=== PATIENT | male | born 1985 | race Caucasian/White ===

== ENCOUNTER → 2016-08-15 | Outpatient (CLI) | payer OTHER ==
--- NOTE | 2016-08-15 12:20 | PN ---
DATE OF SERVICE: 08/15/2016 A 31-year-old gentleman who has been followed in the Sleep Center for treatment of obstructive sleep apnea-hypopnea syndrome. Patient continued to use his CPAP equipment in [facility] most of the nights and there is no snoring with the machine. Without machine, he continued to have snoring. Sometimes patient has difficulties to put mask on, probably secondary to pressure. I checked his CPAP unit. Pressure is 9 cm of water. Ramp is only 5 minutes and started from 8.5 cm of water. [place] Sleepiness Scale is 7. MEDICATIONS: Propranolol, Lexapro, sodium bicarb, Trileptal, Zyprexa 81, melatonin, sodium docusate. During physical exam, a 31-year-old gentleman. BP 114/79, HR 63, RR 12. Height 69-1/2. Weight 254.2. BMI 36.9. Temperature 97.6, oxygen saturation at room air 100%. Oropharynx, extremely low position of soft palate. ABDOMEN: Obese. NECK: Supple. No JVD, Thyroid is not palpable. LUNGS: Clear to percussion and to auscultation. Good air exchange. No wheezing or rhonchi. HEART: S1, S2 regular. No murmurs, gallops, or rubs. AUTO CRANE DRIVER: Awake, alert, and oriented x3. Cranial nerves 2 to 7 intact. There is no fasciculation or atrophy noted. No focal deficits observed. IMPRESSION: 1. Obstructive sleep apnea-hypopnea syndrome. Patient benefiting from treatment with CPAP at the pressure of 9 cm of water. 2. Obesity; body mass index 36.9. 3. Autism. 4. Depression. 5. Some history of progressive behavior in the past. 6. Anxiety. PLAN: 1. Continue treatment with CPAP every night for the whole night. 2. I adjusted RAMP to 20 minutes starting from 6 cm of water. I think that will be more comfortable for the patient. 3. A prescription for all necessary CPAP supplies. Thank you very much for allowing me to participate in the management of your patient. Sincerely, Chava Poon MD, PhD, FAASM Diplomat of [place] [employer], Sleep Medicine Board by [place] [employer] [employer] Chemical Worker of [facility] [place]
== END | disposition home or self-care (01) ==
LOC: SLEEP 08:16
PROVIDERS: ATTEND Internal Medicine
DX: G47.33 Obstructive sleep apnea (adult) (pediatric) (principal); E66.9 Obesity, unspecified; F84.0 Autistic disorder; F32.9 Major depressive disorder, single episode, unspecified; F41.9 Anxiety disorder, unspecified; Z68.36 Body mass index [BMI] 36.0-36.9, adult; Z99.89 Dependence on other enabling machines and devices; Z79.899 Other long term (current) drug therapy

== ENCOUNTER → 2017-09-11 | Outpatient (CLI) | payer OTHER ==
--- NOTE | 2017-09-11 11:25 | SFUN ---
SLEEP CENTER FOLLOW UP NOTE DATE OF SERVICE: 09/11/2017 A 32-year-old gentleman who has been followed in the Sleep Center for treatment of obstructive sleep apnea-hypopnea syndrome. Patient is trying to use CPAP equipment every night. Sometimes he is using it not for the whole night. According to family, he does not have any snoring with the machine. I checked his CPAP unit. CPAP pressure is 9 cm of water. REM started from 6 cm of water. Machine does not have information about apnea-hypopnea index. [place] Sleepiness Scale today is 2. MEDICATIONS: Propranolol, Lexapro, Trileptal, Zyprexa, melatonin, sodium docusate, sodium bicarb. PHYSICAL EXAM: Patient in no distress. BP 115/74, HR 59, RR 16, height 5, 8, weight 246 pounds which is 8 pounds less than during previous visit, BMI 37.4, temperature 98.1 oxygen saturation at room air 98%. OROPHARYNX: Extremely low position of soft palate. Neck Supple, no JVD. Thyroid is not palpable. LUNGS Clear to percussion and to auscultation. Good air exchange. No wheezing or rhonchi. HEART S1, S2 regular. No murmurs, gallops, or rubs. ABDOMEN Soft and nontender. Bowel sounds are present. No organomegaly appreciated. EXTREMITIES No clubbing or cyanosis. PATHOLOGY TECHNICIAN Awake, alert, and oriented X3. Cranial nerves 2 to 7 intact. There is no fasciculation or atrophy. noted. No focal deficits observed. IMPRESSION: 1. Obstructive sleep apnea-hypopnea syndrome. Patient benefitting from treatment with CPAP. No snoring with CPAP. 2. Obesity, body mass index in the range of 37. Patient lost 8 pounds since previous visit, which is a good sign. 3. Autism. 4. Depression. 5. Anxiety. 6. History of some aggressive behavior in the past. PLAN: 1. Continue treatment with CPAP every night for the whole night. 2. Continue losing weight. 3. Sleep hygiene with regular time in bed for at least 7-1/2 hours. 4. Patient does not drive the car. 5. Prescription for all necessary CPAP supplies including mask, tube, filters. Thank you very much for allowing me to participate in the management of your patient. Sincerely, Chava Poon MD, PhD, FAASM Diplomat of [place] [employer] [place] [employer] Purchasing Associate of [facility] [place] MMLARISA / YULISSAN: [id number] /
== END | disposition home or self-care (01) ==
LOC: SLEEP 10:05
PROVIDERS: ATTEND Internal Medicine
DX: G47.33 Obstructive sleep apnea (adult) (pediatric) (principal); E66.9 Obesity, unspecified; F84.0 Autistic disorder; F32.9 Major depressive disorder, single episode, unspecified; F41.9 Anxiety disorder, unspecified; Z68.37 Body mass index [BMI] 37.0-37.9, adult; Z79.899 Other long term (current) drug therapy

== ENCOUNTER → 2018-08-27 | Outpatient (CLI) | payer OTHER ==
--- NOTE | 2018-08-27 12:39 | SFUN ---
SLEEP CENTER FOLLOW UP NOTE DATE OF SERVICE: 08/27/2018 A 33-year-old gentleman who has been followed in the Sleep Center for treatment of obstructive sleep apnea-hypopnea syndrome. Patient continued to use his CPAP equipment every night and sleeps well according to medical staff of his medical facility. Recently he received new CPAP unit. I checked CPAP unit. CPAP pressure is 9 cm of water. Patient used at 91 out of 94 nights and 44/94 nights more than 4 hours with average usage 5.7 hours. Leak is 13 L/minute, which is normal range. Apnea- hypopnea index 2.4, which is normal. [place] Sleepiness Scale today is 0. MEDICATIONS: Propranolol, Lexapro, sodium bicarb, Trileptal, Zyprexa, Ativan, melatonin, sodium docusate, amlodipine. PHYSICAL EXAM: Patient in no distress. BP 112/68, HR 60, RR 16, height 5 foot 9 inches, weight 248 pounds. Body mass index 36.6, the weight is 2 pounds more than during the visit in 2018, temperature 97.0, oxygen saturation at room air 99%. OROPHARYNX: Extremely low position of soft palate. Mallampati 4. ABDOMEN: Obese. Neck Supple, no JVD. Thyroid is not palpable. LUNGS Clear to percussion and to auscultation. Good air exchange. No wheezing or rhonchi. HEART S1, S2 regular. No murmurs, gallops, or rubs. EXTREMITIES No clubbing or cyanosis. GUEST SERVICES REPRESENTATIVE Awake, alert, and oriented X3. Cranial nerves 2 to 7 intact. There is no fasciculation or atrophy. noted. No focal deficits observed. IMPRESSION: 1. Obstructive sleep apnea-hypopnea syndrome. Patient benefitting from CPAP therapy. 2. Obesity; body mass index 36.6. 3. Autism. 4. Depression. 5. Anxiety. 6. History of some aggressive behavior on the past. PLAN: 1. Patient will continue to use CPAP equipment every night for the whole night. 2. Continue losing weight. 3. Sleep hygiene with regular time in bed for 7.[address] 5. We will maintain all necessary CPAP prescription for CPAP supplies. Thank you very much for allowing me to participate in the management of your patient. Sincerely, Chava Poon MD, PhD, FAASM Diplomat of [place] [employer] [place] [employer] Knitter Wire Mesh of [facility] [place] MMLARISA / YULISSAN: [id number] / RAJAT
== END ==
LOC: SLEEP 11:13
PROVIDERS: ATTEND Internal Medicine
DX: G47.33 Obstructive sleep apnea (adult) (pediatric) (principal); E66.9 Obesity, unspecified; F84.0 Autistic disorder; F41.8 Other specified anxiety disorders; Z68.36 Body mass index [BMI] 36.0-36.9, adult; Z99.89 Dependence on other enabling machines and devices; Z79.899 Other long term (current) drug therapy

== ENCOUNTER → 2020-09-27 | Outpatient (CLI) | payer OTHER ==
--- NOTE | 2020-09-27 20:25 | SFUN ---
SLEEP CENTER FOLLOW UP NOTE DATE OF SERVICE: 09/27/2020 35-year-old gentleman has been followed in Sleep Center for treatment of obstructive sleep apnea-hypopnea syndrome. During the last visit, I saw the patient more than 2 years ago. Patient continued to use his CPAP equipment every night. He is autistic, did not answer the question of information getting from the personnel of the place where he lives. [place] sleepiness Scale today is 2. I checked his CPAP unit. Pressure of 9 cm of water, usage 28/30 nights, but 6/30 nights for more than 4 hours. Average usage 2.7 hours per night. Leak is high at 36 L/minute. Apnea-hypopnea index increased to 9.6. The patient using [place] Qu[place] large sized fullface mask. MEDICATIONS: Propranolol, Lexapro, Trileptal, Zyprexa, and melatonin. PHYSICAL EXAMINATION: GENERAL: Patient in no distress. VITAL SIGNS: BP 110/75, HR 60, RR 15, height 5 feet 10 inches, weight 265.6. Oxygen saturation on room air 100%. Oropharynx extremely low position of soft palate. Mallampati IV. NECK: Supple, no JVD. Thyroid is not palpable. LUNGS: Clear to percussion and to auscultation. Good air exchange. No wheezing or rhonchi. HEART: S1, S2 regular. No murmurs, gallops, or rubs. ABDOMEN: Obese. Soft and nontender. Bowel sounds are present. No organomegaly appreciated. EXTREMITIES: No clubbing or cyanosis. ADMINISTRATIVE ASSISTANT FRONT DESK: Awake, alert, and oriented X3. Cranial nerves 2 to 7 intact. There is no fasciculation or atrophy. noted. No focal deficits observed. IMPRESSION: 1. Obstructive sleep apnea-hypopnea syndrome. Patient is using his CPAP equipment every night but short hours benefitting from treatment. 2. Slight increasing apnea-hypopnea index by reading from the machine. 3. Obesity. 4. Autism. 5. Depression. 6. Anxiety. 7. History of some aggressive behavior in the past. PLAN: 1. I adjusted machine to different level of pressure, automatic regimen 6-13. 2. Prescription for all necessary supplies. We could try nasal pillow mask. 3. Patient will continue to use PAP equipment every night for the whole night. 4. Sleep hygiene with regular time in bed for at least 7-1/2 to 8 hours. 5. Precautions related to driving. No driving if feeling sleepiness. 6. I will maintain all necessary prescription for PAP supplies including mask, tube, filters. 7. Watching weight. 8. Follow-up visit in 6 months or earlier if patient has any problems. I spent with the patient and documentation more than 30 minutes. Thank you very much for allowing me to participate in the management of your patient. Sincerely, Chava Poon MD, PhD, FAASM Diplomat of [employer] [employer] Medicine Technician Assistant of [facility] [place] MMODL / IJN: [id number] /
== END ==
LOC: SLEEP 10:21 → EEVIPCON 10:30
PROVIDERS: ATTEND Internal Medicine
DX: G47.33 Obstructive sleep apnea (adult) (pediatric) (principal); E66.9 Obesity, unspecified; F84.0 Autistic disorder; F32.9 Major depressive disorder, single episode, unspecified; F41.9 Anxiety disorder, unspecified; Z86.59 Personal history of other mental and behavioral disorders

== ENCOUNTER → 2021-09-26 | Outpatient (CLI) | payer OTHER ==
--- NOTE | 2021-09-26 12:08 | P.PN ---
Subjective DATE: 09/26/2021 FOLLOW UP VISIT. Patient with obstructive sleep apnea hypopnea syndrome return to sleep center for follow-up visit. Patient is using PAP equipment every night for the whole night, getting PAP supplies in time. The patient does not have significant problems with the mask, PAP unit and humidification. [place] sleepiness scale is 0. I checked information from PAP unit. PAP unit pressure 6-13 cm H2O. Usage is 30 out of 30 nights, average 5.6 hours per night. Leak is 41 l/m, which is in acceptable range. Apnea Hypopnea Index is 10.3, which is slightly increased. MEDICATIONS:1. Amlodipine 2. Docusate 3. Escitalopram 20 mg once a day 4. Olanzapine 5. Oxcarbazepine 6. Propranolol During physical exam: GENERAL: A pleasant patient without any distress. VITAL SIGNS: BP 126/91, HR 56, RR 16 , weight 251, temperature 98.4, oxygen saturation at room air 100 . HEENT: PERRLA, EOMI.low position of soft palate, Mallapati 4 . NECK: Supple. No JVD. LUNGS: Clear to percussion and to auscultation. Good air exchange. No wheezing or rhonchi. HEART: S1, S2 regular. ABDOMEN: Soft and nontender. Slightly obese EXTREMITIES: No clubbing or cyanosis. JUNIOR TECHNICAL WRITER: Awake, alert, and oriented x3. No focal deficit. Impressions: 1. Obstructive sleep apnea-hypopnea syndrome. Patient demonstrated good compliance with treatment, benefiting from treatment. 2. Autism. 3. Obesity. 4. Depression. 5. Anxiety. 6. History of aggressive behavioral in the past. Plan: 1. Continue using PAP equipment every night for the whole night. 2. To change air filter at least 1-2 times per month. 3. PAP unit should stay lower then position of the head. 4. Advised patient to remove all remaining water from humidifier canister daily and make it dry after each usage. Refill canister with fresh distilled water before each usage. 5. Sleep hygiene with regular time in bed for at least 8 hours. 6. Precautions related to driving. No driving if feel any sleepiness. 7. I will maintain prescription for PAP supplies including mask, tube, filters. 8. Follow up visit in 6 months or earlier if patient has any problems. 9. Watching weight. Thank you very much for allowing me to participate in the management of your patient. Chava Poon MD, PhD, FAASM. Diplomat of [place] [employer] Medicine, Sleep Medicine Board by [place] [employer] Pipe Fitter Helper of [facility] [place]
== END ==
LOC: SLEEP 11:13
PROVIDERS: ATTEND Internal Medicine
DX: G47.33 Obstructive sleep apnea (adult) (pediatric) (principal); F84.0 Autistic disorder; F41.9 Anxiety disorder, unspecified; E66.9 Obesity, unspecified; F32.A Depression, unspecified; Z86.59 Personal history of other mental and behavioral disorders; Z99.89 Dependence on other enabling machines and devices; Z79.899 Other long term (current) drug therapy

== ENCOUNTER → 2023-02-17 | Outpatient (CLI) | payer OTHER ==
--- NOTE | 2023-02-17 09:45 | US ---
EXAMINATION TYPE: US gallbladder DATE OF EXAM: 02/17/2023 COMPARISON: NONE CLINICAL INDICATION: Male, 37 years old with history of R74.8, R19.01 abd swelling, R10.11 right uppe r ignacio; abn labs exam limitations due to body habitus patient is disabled and non verbal unable to hol d breath. TECHNIQUE: Multiple sonographic images of the right upper quadrant are obtained. FINDINGS: EXAM MEASUREMENTS: Liver Length: 16 cm Gallbladder Wall: .2 cm CBD: .2 cm Right Kidney: 9.8 x 3.9 x 5.0 cm JUNIOR UNDERWRITER NOTES: Pancreas: Obscured by bowel gas Liver: Increased attenuation Gallbladder: No stones seen Evidence for sonographic Gutierrez's sign: No CBD: wnl Right Kidney: No hydronephrosis or masses seen IMPRESSION: Liver at the upper limits of normal for size.
== END | disposition home or self-care (01) ==
LOC: RADUSWWP 08:49
PROVIDERS: ATTEND Family Medicine
DX: R74.8 Abnormal levels of other serum enzymes (principal); R19.01 Right upper quadrant abdominal swelling, mass and lump
CPT/HCPCS: 76705

== ENCOUNTER → 2024-07-08 | Outpatient (CLI) | payer OTHER ==
--- NOTE | 2024-07-08 15:56 | XR ---
EXAMINATION TYPE: XR tibia fibula LT DATE OF EXAM: 07/08/2024 3:52 PM INDICATION: Patient age:Male; 39 years old; Reason for study: R26.89 OTHER ABNORMALITIES OF GAIT AND M79.605 HEATHER; [facility]. pain COMPARISON: None TECHNIQUE: The left tibia/fibula was examined in AP and lateral projections. FINDINGS: No evidence of any acute osseous pathology, joint dislocation, or soft tissue swelling is n oted. No osseous erosions or periosteal reaction. No radiopaque foreign body. Tiny posterior calcanea l enthesophyte. IMPRESSION: No evidence of acute fracture. [facility], , 07/08/2024 3:53 PM
== END | disposition home or self-care (01) ==
LOC: RADXRMAIN 14:57
PROVIDERS: ATTEND Family Medicine
DX: R26.89 Other abnormalities of gait and mobility (principal); M79.605 Pain in left leg

== ENCOUNTER → 2024-07-14 | Outpatient (CLI) | payer OTHER ==
[2024-07-14 11:26] VITALS: BP 110/73; PULSE 58; RESP 16; TEMP 97.4
--- NOTE | 2024-07-14 12:12 | P.PROGSL ---
Subjective DATE: 07/14/2024 FOLLOW UP VISIT. Patient with obstructive sleep apnea hypopnea syndrome return to sleep center for follow-up visit. Information from previous visit have been reviewed. Patient is using PAP equipment every night for the whole night, getting PAP supplies in time. The patient does not have significant problems with the mask, PAP unit and humidification. [place] sleepiness scale is 3. I checked information from PAP unit. PAP unit pressure 6-13, average 7.4 cm H2O. Usage is 70% for more then 4 hours, average 6.3 hours per night. Leak is high 82 l/m, patient is using full facemask. Apnea Hypopnea Index is 6.8, which is borderline, improved comparing with previous visit. MEDICATIONS have been reviewed, please see below. During physical exam: GENERAL: A pleasant patient without any distress. VITAL SIGNS: Please see below, weight is 252 lbs, BMI 36.6 . HEENT: PERRLA, EOMI.low position of soft palate, Mallapati 4 . NECK: Supple. No JVD. LUNGS: Clear to percussion and to auscultation. Good air exchange. No wheezing or rhonchi. HEART: S1, S2 regular. ABDOMEN: Soft and nontender. Slightly obese EXTREMITIES: No clubbing or cyanosis. BLENDING COORDINATOR: Awake, alert, and oriented x3. No focal deficit. Impressions: 1. Obstructive sleep apnea-hypopnea syndrome. Patient demonstrated good compliance with treatment, benefiting from treatment. 2. Obesity, BMI 36.6, weight is about the same as during previous visit. 3. Autism. 4. Depression. 5. Anxiety. 6. History of aggressive behavior in the past. Plan: 1. Continue using PAP equipment every night for the whole night. 2. Sleep hygiene with regular time in bed for at least 7.5-8 hours 3. PAP unit should stay lower then position of the head. 4. Advised patient to remove all remaining water from humidifier canister daily and make it dry after each usage. Refill canister with fresh distilled water before each usage. 5. Watching and losing weight. 6. Precautions related to driving. No driving if feel any sleepiness. 7. I will maintain prescription for PAP supplies including mask, tube, filters. 8. Follow up visit in 8 months or earlier if patient has any problems. Thank you very much for allowing me to participate in the management of your patient. Chava Poon MD, PhD, FAASM. Diplomat of [place] [employer], Sleep Medicine Board by [place] Document Scanner of [facility] [place] Objective - Vital Signs Vital Signs: Vital Signs Temp 97.4 F L 07/14/24 11:25 Pulse 58 L 07/14/24 11:25 Resp 16 07/14/24 11:25 BP 110/73 07/14/24 11:25 Pulse Ox 98 07/14/24 11:25 FiO2 Intake & Output 07/13/24 07/14/24 07/14/24 18:59 06:59 18:59 Weight 114.305 kg Home Medications: Home Medications Medication Instructions Recorded Confirmed Type Docusate Sodium 100 mg PO BID 07/14/24 07/14/24 History Escitalopram [Lexapro] 20 mg PO DAILY 07/14/24 07/14/24 History Fluticasone Nasal [place] [Flonase 50 mcg INHALATION DAILY 07/14/24 07/14/24 History Nasal [place]] Ketoconazole [Ketoconazole 2%] 15 gm TOPICAL DAILY 07/14/24 07/14/24 History Melatonin 3 mg PO HS 07/14/24 07/14/24 History OXcarbazepine See Rx Instructions .ROUTE .COMPLEX 07/14/24 07/14/24 History Propranolol [Inderal] 10 mg PO DAILY 07/14/24 07/14/24 History Sodium Bicarbonate Tab 650 mg PO BID 07/14/24 07/14/24 History amLODIPine [Norvasc] 5 mg PO HS 07/14/24 07/14/24 History lisinopriL [Zestril] 5 mg PO DAILY 07/14/24 07/14/24 History polyethylene glycoL 3350 See Rx Instructions .ROUTE .COMPLEX 07/14/24 07/14/24 History [Polyethylene Glycol 3350]
== END ==
LOC: 3 N SLEEP 11:05
PROVIDERS: ATTEND Internal Medicine
DX: G47.33 Obstructive sleep apnea (adult) (pediatric) (principal); E66.01 Morbid (severe) obesity due to excess calories; F32.A Depression, unspecified; F41.9 Anxiety disorder, unspecified; Z86.59 Personal history of other mental and behavioral disorders; Z68.36 Body mass index [BMI] 36.0-36.9, adult
CPT/HCPCS: 99212